=== PATIENT | female | born 1960 | race Caucasian/White ===

== ENCOUNTER 2020-02-12 07:43 | Emergency (ER) | payer OTHER ==
[~2020-02-12] VITALS: Ht 157.5 cm; Wt 64.9 kg
[2020-02-12 07:54] VITALS: BP_SYST 162
[2020-02-12] MEDS: HYDROcodone/ACETAMIN 5-325 MG TAB (NORCO/ VICODIN) PO ONE (08:46)
[2020-02-12 09:30] VITALS: BP_SYST 128
== END 2020-02-12 10:12 | disposition home or self-care (01) ==
LOC: SED 07:43
DX: S42.012A Anterior displaced fracture of sternal end of left clavicle, initial encounter for closed fracture (principal); I10 Essential (primary) hypertension; Z88.6 Allergy status to analgesic agent; W06.XXXA Fall from bed, initial encounter; Y93.89 Activity, other specified; Y92.89 Other specified places as the place of occurrence of the external cause; Y99.8 Other external cause status
CPT/HCPCS: 71045; 73060-TC; 99284